=== PATIENT | male | born 1960 | race Caucasian/White ===

== ENCOUNTER 2020-09-26 14:03 | Inpatient (IN) ==
[2020-09-26] MEDS ORDERED: ONDANSETRON 4 MG/2 ML VIAL IV PRN (16:32)
[2020-09-26] MEDS ORDERED: DEXTROSE 50% 25 GM/50 ML VIAL IV PRN (16:32)
[2020-09-26] MEDS ORDERED: GLUCAGON 1 MG VIAL IM PRN (16:32)
[2020-09-27 06:29] LABS: Basophils # 0.1 10*3/uL (0.0-0.2); Basophils % 0.4 % (0.0-0.8); Eosinophils # 0.1 10*3/uL (0.0-0.87); Eosinophils % 0.3 % (0.00-10.9); Hematocrit 40.3 VOL% (42.0-52.0); Hemoglobin 13.9 GM/DL (14.0-18.0); Immature Granulocytes % 0.6 %; Lymphocytes # 26.3 10*3/uL (1.4-4.0); Lymphocytes % 79.1 % (21.2-54.2); Mean Corpuscular HGB Conc 34.5 GM/DL (32-36); Mean Corpuscular Volume 83.6 FL (87-102); Mean Platelet Volume 11.6 FL (9.6-12.0); Monocytes % 4.8 % (1.7-12.7); NRBC # 0.02 10*3/uL; Neutrophils % 14.8 % (38.7-73.9); Platelet Count 245 T/CUMM (130-400); Red Blood Count 4.82 MC/CUMM (3.8-5.5); Red Cell Distribution Width 19.4 % (9.3-17.3); White Blood Count 33.2 T/CUMM (4-12)
[2020-09-27 06:57] LABS: Albumin 2.6 G/DL (3.4-5.0); Calcium 9.2 MG/DL (8.5-10.1); Osmolality,Calculated 271.8 MOS/KG (273-304); Potassium 3.6 MMOL/L (3.5-5.1); Total Protein 6.1 G/DL (5.0-7.5)
[2020-09-27 06:58] LABS: Albumin 2.6 G/DL (3.4-5.0); Atypical Lymphocytes Few; Bilirubin,Direct 23.97 MG/DL (0.0-0.20); Eosinophils 2 % (0-10); Lymphocytes 77 % (20-55); Segmented Neutrophils 18 % (50-85); Smudge Cells Few; Total Cells Counted 100; Total Protein 6.2 G/DL (5.0-7.5)
[2020-09-27 06:59] LABS: Bilirubin,Total 27.1 MG/DL (0.2-1.0); Hypochromasia 1+; Microcytosis 1+; Platelet Estimate Normal; Target Cells Slight
[2020-09-27 07:00] LABS: Bilirubin,Indirect 3.1 MG/DL (0.0-1.0); Bilirubin,Total 27.1 MG/DL (0.2-1.0)
[2020-09-27] MEDS: PIPERACILLIN/TAZOBACTAM 3,375 MG in SODIUM CHLORIDE 0.9% 100 ML IV SCH ×2 (12:31→17:13)
[2020-09-27] MEDS: SODIUM CHLORIDE 0.45% 1,000 ML IV SCH (12:31)
[2020-09-27] MEDS ORDERED: LORazepam 2 MG/1 ML VIAL IV ONE (13:30)
[2020-09-28] MEDS: PIPERACILLIN/TAZOBACTAM 3,375 MG in SODIUM CHLORIDE 0.9% 100 ML IV SCH ×3 (00:07→16:15)
[2020-09-28 06:05] LABS: Basophils # 0.1 10*3/uL (0.0-0.2); Basophils % 0.3 % (0.0-0.8); Eosinophils # 0.1 10*3/uL (0.0-0.87); Eosinophils % 0.3 % (0.00-10.9); Hemoglobin 13.8 GM/DL (14.0-18.0); Immature Granulocytes % 0.6 %; Immature Granulocytes Absolute 0.17 #; Lymphocytes # 22.5 10*3/uL (1.4-4.0); Lymphocytes % 78.1 % (21.2-54.2); Mean Corpuscular HGB Conc 33.7 GM/DL (32-36); Mean Corpuscular Volume 83.7 FL (87-102); Mean Platelet Volume 11.6 FL (9.6-12.0); Monocytes % 4.6 % (1.7-12.7); Neutrophils % 16.1 % (38.7-73.9); Platelet Count 259 T/CUMM (130-400); Red Cell Distribution Width 19.8 % (9.3-17.3); White Blood Count 28.9 T/CUMM (4-12)
[2020-09-28 06:34] LABS: Atypical Lymphocytes Few; Eosinophils 2 % (0-10); Hypochromasia 1+; Lymphocytes 80 % (20-55); Microcytosis 1+; Platelet Estimate Adequate; Segmented Neutrophils 16 % (50-85); Smudge Cells Few; Total Cells Counted 100
[2020-09-28 06:44] LABS: Albumin 2.4 G/DL (3.4-5.0); Calcium 8.9 MG/DL (8.5-10.1); Osmolality,Calculated 276.7 MOS/KG (273-304); Potassium 3.8 MMOL/L (3.5-5.1)
[2020-09-28 06:48] LABS: Bilirubin,Total 26.7 MG/DL (0.2-1.0)
[2020-09-28 15:13] LABS: INR 1.7; PT Patient Result 17.8 SECS (9.8-11.9); Partial Thromboplastin Time 31.6 SECS (23.9-33.8)
[2020-09-28] MEDS: SODIUM CHLORIDE 0.45% 1,000 ML IV SCH (16:18)
[2020-09-29] MEDS: PIPERACILLIN/TAZOBACTAM 3,375 MG in SODIUM CHLORIDE 0.9% 100 ML IV SCH ×3 (01:31→19:16)
[2020-09-29 06:12] LABS: Basophils # 0.1 10*3/uL (0.0-0.2); Basophils % 0.4 % (0.0-0.8); Eosinophils # 0.1 10*3/uL (0.0-0.87); Eosinophils % 0.5 % (0.00-10.9); Hematocrit 42.4 VOL% (42.0-52.0); Immature Granulocytes % 0.5 %; Immature Granulocytes Absolute 0.16 #; Lymphocytes # 23.7 10*3/uL (1.4-4.0); Lymphocytes % 79.2 % (21.2-54.2); Mean Platelet Volume 11.7 FL (9.6-12.0); Monocytes % 2.5 % (1.7-12.7); Neutrophils % 16.9 % (38.7-73.9); Platelet Count 251 T/CUMM (130-400); Red Blood Count 4.99 MC/CUMM (3.8-5.5); Red Cell Distribution Width 20.7 % (9.3-17.3)
[2020-09-29 06:36] LABS: INR 1.6; PT Patient Result 16.6 SECS (9.8-11.9)
[2020-09-29 06:39] LABS: Lymphocytes 73 % (20-55); Segmented Neutrophils 23 % (50-85); Total Cells Counted 100
[2020-09-29 06:40] LABS: Atypical Lymphocytes Few; Microcytosis 1+; Platelet Estimate Adequate; Smudge Cells Few
[2020-09-29 06:42] LABS: Albumin 2.6 G/DL (3.4-5.0); Calcium 9.3 MG/DL (8.5-10.1); Osmolality,Calculated 275.7 MOS/KG (273-304); Potassium 4.1 MMOL/L (3.5-5.1); Total Protein 6.3 G/DL (5.0-7.5)
[2020-09-29 06:51] LABS: Bilirubin,Total 26.6 MG/DL (0.2-1.0)
[2020-09-29] MEDS ORDERED: LIDOCAINE 2% 5 ML VIAL ONE (07:58)
[2020-09-29] MEDS ORDERED: MIDAZOLAM 2 MG/2 ML VIAL ONE (07:58)
[2020-09-29] MEDS ORDERED: propofoL 200 MG/20 ML VIAL IV ONE (07:58)
[2020-09-29] MEDS ORDERED: SUCCINYLCHOLINE 200 MG/10 ML VIAL ONE (07:58)
[2020-09-29] MEDS ORDERED: ROCURONIUM 50 MG/5 ML VIAL IV ONE (07:58)
[2020-09-29] MEDS ORDERED: ONDANSETRON 4 MG/2 ML VIAL ONE (07:58)
[2020-09-29] MEDS ORDERED: fentaNYL 100 MCG/2 ML VIAL ONE (07:59)
[2020-09-29] MEDS ORDERED: INDOMETHACIN SUPP 50 MG SUPP RECTAL ONE (08:00)
[2020-09-29] MEDS ORDERED: LACTATED RINGERS 1,000 ML IV SCH (08:00)
[2020-09-29] MEDS ORDERED: ETOMIDATE 20 MG/10 ML VIAL IV ONE (08:48)
[2020-09-29] MEDS ORDERED: METOPROLOL TARTRATE 5 MG/5 ML VIAL IV ONE (09:14)
[2020-09-29] MEDS ORDERED: SEVOFLURANE 1 UNIT/15 MINUTE INH ONE (09:57)
[2020-09-29] MEDS: SODIUM CHLORIDE 0.45% 1,000 ML IV SCH (10:41)
[2020-09-30] MEDS: PIPERACILLIN/TAZOBACTAM 3,375 MG in SODIUM CHLORIDE 0.9% 100 ML IV SCH ×2 (01:34→14:05)
[2020-09-30 05:44] LABS: Basophils # 0.1 10*3/uL (0.0-0.2); Basophils % 0.4 % (0.0-0.8); Eosinophils # 0.1 10*3/uL (0.0-0.87); Eosinophils % 0.5 % (0.00-10.9); Hematocrit 41.3 VOL% (42.0-52.0); Hemoglobin 13.6 GM/DL (14.0-18.0); Immature Granulocytes % 0.6 %; Immature Granulocytes Absolute 0.14 #; Lymphocytes # 16.8 10*3/uL (1.4-4.0); Lymphocytes % 72.7 % (21.2-54.2); Mean Corpuscular HGB Conc 32.9 GM/DL (32-36); Mean Corpuscular Volume 84.5 FL (87-102); Mean Platelet Volume 11.7 FL (9.6-12.0); Monocytes % 4.9 % (1.7-12.7); Neutrophils % 20.9 % (38.7-73.9); Platelet Count 232 T/CUMM (130-400); Red Blood Count 4.89 MC/CUMM (3.8-5.5); Red Cell Distribution Width 20.8 % (9.3-17.3); White Blood Count 23.2 T/CUMM (4-12)
[2020-09-30 05:55] LABS: INR 1.4; PT Patient Result 14.8 SECS (9.8-11.9); Partial Thromboplastin Time 30.7 SECS (23.9-33.8)
[2020-09-30 06:11] LABS: Albumin 2.5 G/DL (3.4-5.0); Calcium 8.9 MG/DL (8.5-10.1); Osmolality,Calculated 282.3 MOS/KG (273-304); Potassium 4.2 MMOL/L (3.5-5.1); Total Protein 5.9 G/DL (5.0-7.5)
[2020-09-30 06:15] LABS: Bilirubin,Total 23.7 MG/DL (0.2-1.0)
[2020-09-30 07:06] LABS: Band Neutrophils 1 % (0-10); Eosinophils 1 % (0-10); Lymphocytes 69 % (20-55); Segmented Neutrophils 22 % (50-85); Total Cells Counted 100
[2020-09-30 07:07] LABS: Smudge Cells Few; Target Cells 1+
[2020-09-30 07:08] LABS: Hypochromasia 2+; Ovalocytes Slight; Spherocytes Few
[2020-09-30 07:09] LABS: Atypical Lymphocytes 2+; Platelet Estimate Normal
[2020-09-30 07:12] LABS: Anisocytosis 2+
[2020-09-30] MEDS ORDERED: LIDOCAINE 2% 5 ML VIAL ONE (07:47)
[2020-09-30] MEDS ORDERED: ROCURONIUM 50 MG/5 ML VIAL IV ONE ×2 (07:47→10:28)
[2020-09-30] MEDS ORDERED: propofoL 200 MG/20 ML VIAL IV ONE (07:47)
[2020-09-30] MEDS ORDERED: ONDANSETRON 4 MG/2 ML VIAL ONE (07:47)
[2020-09-30] MEDS ORDERED: MIDAZOLAM 2 MG/2 ML VIAL ONE (07:48)
[2020-09-30] MEDS ORDERED: fentaNYL 100 MCG/2 ML VIAL ONE (07:48)
[2020-09-30] MEDS ORDERED: LACTATED RINGERS 1,000 ML IV SCH (08:00)
[2020-09-30] MEDS ORDERED: TISSUE ADHESIVE 1 EACH APPLICATOR TOP ONE (08:07)
[2020-09-30] MEDS ORDERED: BUPIVACAINE MPF 0.25% 30 ML VIAL ONE (08:07)
[2020-09-30] MEDS ORDERED: LIDOCAINE 1%/EPI INJ 20 ML VIAL ONE (08:08)
[2020-09-30] MEDS ORDERED: PHENYLEPHRINE 1 MG/10 ML SYRINGE IV ONE (10:03)
[2020-09-30] MEDS ORDERED: LACTATED RINGERS 1,000 ML IV ONE (10:04)
[2020-09-30] MEDS ORDERED: MICROFIBRILLAR COLLAGEN POWDER 1 GM CAN TOP ONE (10:08)
[2020-09-30] MEDS ORDERED: SUGAMMADEX 200 MG/2 ML VIAL IV ONE (10:27)
[2020-09-30] MEDS ORDERED: MORPHINE 4 MG/1 ML VIAL IV PRN (10:59)
[2020-09-30] MEDS ORDERED: SEVOFLURANE 1 UNIT/15 MINUTE INH ONE (11:08)
[2020-09-30] MEDS ORDERED: ONDANSETRON 4 MG/2 ML VIAL IV PRN (11:17)
[2020-09-30] MEDS: HYDROmorphone 2 MG/1 ML VIAL IV PRN ×2 (11:20→11:27)
[2020-09-30 13:25] LABS: Hematocrit 40.6 VOL% (42.0-52.0); Hemoglobin 13.3 GM/DL (14.0-18.0)
[2020-09-30 19:27] LABS: Hematocrit 37.3 VOL% (42.0-52.0); Hemoglobin 12.3 GM/DL (14.0-18.0)
[2020-10-01] MEDS: PIPERACILLIN/TAZOBACTAM 3,375 MG in SODIUM CHLORIDE 0.9% 100 ML IV SCH ×3 (00:02→17:11)
[2020-10-01 04:32] LABS: Basophils # 0.1 10*3/uL (0.0-0.2); Basophils % 0.3 % (0.0-0.8); Eosinophils % 0.1 % (0.00-10.9); Hematocrit 35.8 VOL% (42.0-52.0); Hematocrit 36.5 VOL% (42.0-52.0); Hemoglobin 11.7 GM/DL (14.0-18.0); Immature Granulocytes % 0.6 %; Lymphocytes # 25.5 10*3/uL (1.4-4.0); Lymphocytes % 79.3 % (21.2-54.2); Mean Corpuscular HGB Conc 32.1 GM/DL (32-36); Mean Corpuscular Volume 85.7 FL (87-102); Mean Platelet Volume 11.3 FL (9.6-12.0); Monocytes % 2.1 % (1.7-12.7); Neutrophils % 17.6 % (38.7-73.9); Platelet Count 265 T/CUMM (130-400); Red Blood Count 4.26 MC/CUMM (3.8-5.5); White Blood Count 32.2 T/CUMM (4-12)
[2020-10-01 04:57] LABS: Lymphocytes 69 % (20-55); Platelet Estimate Normal; Segmented Neutrophils 30 % (50-85); Smudge Cells Few; Total Cells Counted 100
[2020-10-01 05:23] LABS: Albumin 2.2 G/DL (3.4-5.0); Calcium 8.7 MG/DL (8.5-10.1); Osmolality,Calculated 272.8 MOS/KG (273-304); Potassium 4.4 MMOL/L (3.5-5.1); Total Protein 5.4 G/DL (5.0-7.5)
[2020-10-01 05:35] LABS: Bilirubin,Total 19.6 MG/DL (0.2-1.0)
[2020-10-01] MEDS: SODIUM CHLORIDE 0.45% 1,000 ML IV SCH (06:02)
[2020-10-02] MEDS: PIPERACILLIN/TAZOBACTAM 3,375 MG in SODIUM CHLORIDE 0.9% 100 ML IV SCH ×3 (00:10→18:09)
[2020-10-02 03:42] LABS: Basophils # 0.1 10*3/uL (0.0-0.2); Basophils % 0.4 % (0.0-0.8); Eosinophils # 0.1 10*3/uL (0.0-0.87); Eosinophils % 0.3 % (0.00-10.9); Hematocrit 32.3 VOL% (42.0-52.0); Hemoglobin 10.7 GM/DL (14.0-18.0); Immature Granulocytes % 1.1 %; Immature Granulocytes Absolute 0.32 #; Lymphocytes # 22.8 10*3/uL (1.4-4.0); Lymphocytes % 77.3 % (21.2-54.2); Mean Corpuscular HGB Conc 33.1 GM/DL (32-36); Mean Corpuscular Volume 85.4 FL (87-102); Mean Platelet Volume 11.2 FL (9.6-12.0); Monocytes % 5.6 % (1.7-12.7); Neutrophils % 15.3 % (38.7-73.9); Platelet Count 206 T/CUMM (130-400); Red Blood Count 3.78 MC/CUMM (3.8-5.5); Red Cell Distribution Width 20.6 % (9.3-17.3); White Blood Count 29.5 T/CUMM (4-12)
[2020-10-02 04:11] LABS: Albumin 2.1 G/DL (3.4-5.0); Calcium 8.4 MG/DL (8.5-10.1); Potassium 3.8 MMOL/L (3.5-5.1); Total Protein 5.3 G/DL (5.0-7.5)
[2020-10-02 04:21] LABS: Lymphocytes 74 % (20-55); Segmented Neutrophils 18 % (50-85); Total Cells Counted 100
[2020-10-02 04:22] LABS: Atypical Lymphocytes Few; Hypochromasia 2+; Platelet Estimate Normal; Smudge Cells Few; Target Cells 1+
[2020-10-02 04:23] LABS: Reactive Lymphocytes 1+
[2020-10-02] MEDS: SODIUM CHLORIDE 0.45% 1,000 ML IV SCH ×2 (08:13→08:14)
[2020-10-03] MEDS: PIPERACILLIN/TAZOBACTAM 3,375 MG in SODIUM CHLORIDE 0.9% 100 ML IV SCH ×2 (00:33→09:33)
[2020-10-03 04:11] LABS: Albumin 2.2 G/DL (3.4-5.0); Calcium 8.8 MG/DL (8.5-10.1); Osmolality,Calculated 271.8 MOS/KG (273-304); Total Protein 5.6 G/DL (5.0-7.5)
[2020-10-03] MEDS: SODIUM CHLORIDE 0.45% 1,000 ML IV SCH ×2 (04:45→07:05)
[2020-10-03 04:53] LABS: Bilirubin,Total 14.8 MG/DL (0.2-1.0)
[2020-10-03] MEDS ORDERED: BISACODYL 5 MG TABLET PO PRN (08:13)
[2020-10-03] MEDS ORDERED: POLYETHYLENE GLYCOL POWDER 17 GM PACK PO SCH (09:00)
[2020-10-03 11:52] VITALS: BP 127/81
== END 2020-10-03 15:30 | disposition home or self-care (01) | DRG 418 ==
LOC: SUATTDRO 14:58 → N.4E 14:58
PROVIDERS: ADMIT Internal Medicine; ATTEND Family Medicine
PROC: ERCPWSP (ICD-10-PCS; 2020-09-29 08:35)
PROC: LAPCHOL (2020-09-30 08:56)